=== PATIENT | male | born 1990 | race Two or more races ===

== ENCOUNTER 2020-05-26 21:36 | Emergency (ER) | payer SELFPAY ==
[~2020-05-26] VITALS: Ht 170.2 cm; Wt 81.8 kg
[2020-05-26 21:45] VITALS: BP 155/72
--- NOTE | 2020-05-26 22:02 | PHYS DOC ---
General Adult EDM: Chief Complaint: DENTAL PROBLEM HPI: HPI: Patient is a 30 year old male who presents to the ED today complaining of canker sores on his lower gums and lower inner lip that began 3 days ago. Patient denies any fever. He reports he is a smoker and would like to make sure he does not have oral cancer. Denies any fever, denies any trismus. (SUNSHINE WAN APRN) Review of Systems: Review of Systems: Constitutional: Denies fever or chills. [] HENT: Reports canker sore on the lower gums. Denies nasal congestion or sore throat. [] Musculoskeletal: Denies back pain or joint pain. [] Integument: Denies rash. [] Neurologic: Denies headache, focal weakness or sensory changes. [] Psychiatric: Denies depression or anxiety. [] (SUNSHINE WAN APRN) Heart Score: Risk Factors: Risk Factors: DM, Current or recent (<one month) smoker, HTN, HLP, family history of CAD, obesity. Risk Scores: Score 0 - 3: 2.5% MACE over next 6 weeks - Discharge Home Score 4 - 6: 20.3% MACE over next 6 weeks - Admit for Clinical Observation Score 7 - 10: 72.7% MACE over next 6 weeks - Early Invasive Strategies (SUNSHINE WAN APRN) Allergies: Allergies: Allergies Coded Allergies Type Severity Reaction Last Updated Verified No Known Drug Allergies 05/26/20 No (SUNSHINE WAN APRN) Physical Exam: PE: Constitutional: Well developed, well nourished, no acute distress, non-toxic appearance. [] HENT: Normocephalic, atraumatic, bilateral external ears normal, oropharynx moist, no oral exudates, nose normal. [] Lower gum and inner lip with small amount of canker sores. Skin: Warm, dry, no erythema, no rash. [] Back: No tenderness, no CVA tenderness. [] Extremities: No tenderness, no cyanosis, no clubbing, ROM intact, no edema. [] Neurologic: Alert and oriented X 3, normal motor function, normal sensory function, no focal deficits noted. [] Psychologic: Affect normal, judgement normal, mood normal. [] (SUNSHINE WAN APRN) EKG: EKG: [] (SUNSHINE WAN APRN) Radiology/Procedures: Radiology/Procedures: [] (SUNSHINE WAN APRN) Course & Med Decision Making: Course & Med Decision Making Pertinent Labs and Imaging studies reviewed. (See chart for details) This is a 30-year-old female patient presenting to the ED with a canker sores. Discussed ways of managing it. Follow-up with PCP in 1 to 2 weeks. Encouraged to consider smoking cessation. (SUNSHINE WAN APRN) Course & Med Decision Making I have reviewed the PA/SEATING CAPTAIN's note and Plan of Care. I was available for consultation as needed during the patient's visit in the emergency department. I agree with the clinical impression, plans and disposition. (ZORAN HERNANDEZ MD) Dragon Disclaimer: Dragon Disclaimer: This electronic medical record was generated, in whole or in part, using a voice recognition dictation system. (SUNSHINE WAN APRN) Departure Departure Impression: Primary Impression: Canker sores oral Additional Impression: Smoking addiction Disposition: 01 DC HOME SELF CARE/HOMELESS Condition: STABLE Referrals: NO PCP (PCP) follow up with your doctor in one week Patient Instructions: Canker Sores, Brief, Smoking Cessation Additional Instructions: You have canker sores. Use the prescribed medication as needed. Follow-up with your own doctor in 1 to 2 weeks. SUNSHINE WAN APRN May 26, 2020 22:02 ZORAN HERNANDEZ MD May 26, 2020 22:24
[2020-05-26] MEDS ORDERED: LIDO:MAALOX:BENADRYL 1:1:1 180 ML BOTTLE. PO STA (22:03)
== END 2020-05-26 22:09 | disposition home or self-care (01) ==
LOC: ER 21:36
DX: K12.0 Recurrent oral aphthae (principal); F17.200 Nicotine dependence, unspecified, uncomplicated
CPT/HCPCS: 99282

== ENCOUNTER 2021-06-06 21:36 | Emergency (ER) | payer OTHER ==
[~2021-06-06] VITALS: Ht 170.2 cm; Wt 81.1 kg
[2021-06-06 22:00] VITALS: BP 147/92
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
[2021-06-06] MEDS ORDERED: traMADol 50 MG TABLET PO ONE (23:00)
--- NOTE | 2021-06-07 00:35 | RAD ---
EXAM: XR RIBS AND CHEST 4+VIEWS 06/06/2021 10:52 PM CLINICAL INDICATION: Bilateral rib pain COMPARISON: None TECHNIQUE: AP and oblique views of the ribs. PA view of the chest FINDINGS: No acute rib fracture. Heart is normal in size. Lungs are well-expanded and clear. No pleu ral effusion or pneumothorax. IMPRESSION: No acute rib fracture or acute cardiopulmonary abnormality. Electronically signed by: Florida Dillon MD (06/07/2021 12:32 AM) [id number]
== END 2021-06-07 00:45 | disposition home or self-care (01) ==
LOC: ER 21:36
DX: R07.81 Pleurodynia (principal); R03.0 Elevated blood-pressure reading, without diagnosis of hypertension; F17.210 Nicotine dependence, cigarettes, uncomplicated; K14.9 Disease of tongue, unspecified; G43.909 Migraine, unspecified, not intractable, without status migrainosus
CPT/HCPCS: 71111; 99283